=== PATIENT | female | born 1940 | race Caucasian/White ===

== ENCOUNTER 2016-09-30 15:44 | Emergency (ER) | payer MEDICARE, MEDICAID ==
[2016-09-30] MEDS ORDERED: ASPIRIN 81 MG TABLET, CHEWABLE PO ONE (15:49)
--- NOTE | 2016-09-30 15:51 | ER Document Report ---
ED Medical Screen (RME) - General Chief Complaint: Chest Pain Stated Complaint: CHEST WALL PAIN Time Seen by Provider: 09/30/16 15:49 Notes: The patient is a 76-year-old female, past medical history anxiety, presents by EMS with 1 day of diffuse anterior chest pain that is worse when she palpates the chest wall. She thinks it is her anxiety, but it concerned her enough to call 911. PE: NAD. RRR. Lungs CTAB. Strong radial pulses. I have greeted and performed a rapid initial assessment of this patient. A comprehensive ED assessment and evaluation of the patient, analysis of test results and completion of the medical decision making process will be conducted by additional ED providers. TRAVEL OUTSIDE OF THE [place] IN LAST 30 DAYS: No - Related Data Allergies/Adverse Reactions: No Known Allergies Allergy (Verified 08/19/14 15:12) Past Medical History - Past Medical History Cardiac Medical History: Reports: Hx Coronary Artery Disease, Hx Hypercholesterolemia, Hx Peripheral Vascular Disease Denies: Hx Heart Attack, Hx Hypertension Pulmonary Medical History: Denies: Hx Asthma, Hx Bronchitis, Hx COPD, Hx Pneumonia Neurological Medical History: Reports: Hx Cerebrovascular Accident. Denies: Hx Seizures Endocrine Medical History: Reports: Hx Hypothyroidism Renal/ Medical History: Reports: Hx End Stage Renal Disease, Hx Renal Insufficiency GI Medical History: Denies: Hx Hepatitis, Hx Hiatal Hernia, Hx Ulcer Musculoskeltal Medical History: Reports Hx Arthritis, Reports Hx Gout Psychiatric Medical History: Reports: Hx Anxiety, Hx Dementia, Hx Depression Infectious Medical History: Denies: Hx Hepatitis Past Surgical History: Reports: Hx Cholecystectomy, Hx Hysterectomy, Hx Orthopedic Surgery - Right total knee, laminectomy, Hx Thyroid Surgery, Hx Vascular Surgery - Left iliac artery angioplasty and stent. Denies: Hx Mastectomy, Hx Open Heart Surgery, Hx Pacemaker - Immunizations Hx Diphtheria, Pertussis, Tetanus Vaccination: Yes - 2008
--- NOTE | 2016-09-30 16:23 | RADIOLOGY REPORT (SQ) ---
EXAM DESCRIPTION: CHEST SINGLE VIEW COMPLETED DATE/TIME: 09/30/2016 4:14 pm REASON FOR STUDY: chest pain COMPARISON: 08/20/2015. NUMBER OF VIEWS: One view. TECHNIQUE: Single frontal radiographic view of the chest acquired. LIMITATIONS: None. FINDINGS: LUNGS AND PLEURA: No opacities, masses or pneumothorax. No pleural effusion. Attenuated bl ood vessels and flattened agnes-diaphragms. MEDIASTINUM AND HILAR STRUCTURES: No masses. Contour normal. HEART AND VASCULAR STRUCTURES: Heart normal in size. Normal vasculature. BONES: No acute findings. HARDWARE: None in the chest. OTHER: No other significant finding. IMPRESSION: COPD. NO ACUTE RADIOGRAPHIC FINDING IN THE CHEST. TECHNICAL DOCUMENTATION: JOB ID: [id number] [employer]- All Rights Reserved
--- NOTE | 2016-09-30 16:29 | ER Document Report ---
ED Cardiac - General Chief Complaint: Chest Pain Stated Complaint: CHEST WALL PAIN Time Seen by Provider: 09/30/16 15:49 Mode of Arrival: Stretcher Information source: Patient TRAVEL OUTSIDE OF THE [place] IN LAST 30 DAYS: No - HPI Patient complains to provider of: Chest pain Was the onset of pain: Gradual Is the pain a: New problem Chest pain location: Substernal Quality of pain: Achy Chest pain radiation location: None Severity now: Mild Severity at worst: Mild Chest pain precipitating factors: At Rest Cardiac risk factors: Hypertension, Dyslipidemia Associated symptoms: Shortness of breath Exacerbated by: Coughing, Torso movement Relieved by: Nothing Similar symptoms previously: No Recently seen / treated by doctor: No Notes: Patient is a 76-year-old female who presents via EMS from [facility] for complaints of midsternal chest pain that is dull and achy, it has been going on for 3 weeks, it is reproducible with certain movements, as well as deep breaths and coughing, her cough is nonproductive, she does report some shortness of breath at times, has a history of chronic COPD and is on 2 L of O2 24 hours a day, patient denies any fever - Related Data Allergies/Adverse Reactions: No Known Allergies Allergy (Verified 09/30/16 16:46) Home Medications: Current Home Medications Budesonide/Formoterol Fumarate [Symbicort Hfa 160-4.5 Mcg Inhaler 6 gm] 2 puff IH Q12 09/30/16 [History] Dextromethorphan HBr/Quinidine [Nuedexta 20-10 mg Capsule] 20 mg PO BID [History] Dicyclomine HCl 20 mg PO TID 09/30/16 [History] Lisinopril [Prinivil 2.5 mg Tablet] 7.5 mg PO DAILY 09/30/16 [History] Melatonin 1 mg PO DAILY 09/30/16 [History] Methylcellulose [Fiber Laxative] 500 mg PO TID 09/30/16 [History] Sennosides [Senna] 8.6 mg PO BID 09/30/16 [History] Trazodone HCl 50 mg PO DAILY 09/30/16 [History] Past Medical History - General Information source: Patient - Social History Smoking Status: Former Smoker Family History: DM, Hyperlipidemia, Hypertension - Past Medical History Cardiac Medical History: Reports: Hx Coronary Artery Disease, Hx Hypercholesterolemia, Hx Peripheral Vascular Disease Denies: Hx Heart Attack, Hx Hypertension Pulmonary Medical History: Denies: Hx Asthma, Hx Bronchitis, Hx COPD, Hx Pneumonia Neurological Medical History: Reports: Hx Cerebrovascular Accident. Denies: Hx Seizures Endocrine Medical History: Reports: Hx Hypothyroidism Renal/ Medical History: Reports: Hx End Stage Renal Disease, Hx Renal Insufficiency GI Medical History: Denies: Hx Hepatitis, Hx Hiatal Hernia, Hx Ulcer Musculoskeltal Medical History: Reports Hx Arthritis, Reports Hx Gout Psychiatric Medical History: Reports: Hx Anxiety, Hx Dementia, Hx Depression Infectious Medical History: Denies: Hx Hepatitis Past Surgical History: Reports: Hx Cholecystectomy, Hx Hysterectomy, Hx Orthopedic Surgery - Right total knee, laminectomy, Hx Thyroid Surgery, Hx Vascular Surgery - Left iliac artery angioplasty and stent. Denies: Hx Mastectomy, Hx Open Heart Surgery, Hx Pacemaker - Immunizations Hx Diphtheria, Pertussis, Tetanus Vaccination: Yes - 2008 Hx Pneumococcal Vaccination: 03/08/10 Review of Systems - Review of Systems Constitutional: No symptoms reported EENT: No symptoms reported Cardiovascular: See HPI Respiratory: See HPI Gastrointestinal: No symptoms reported Genitourinary: No symptoms reported Female Genitourinary: No symptoms reported Musculoskeletal: No symptoms reported Skin: No symptoms reported Hematologic/Lymphatic: No symptoms reported Neurological/Psychological: No symptoms reported -: Yes All other systems reviewed and negative Physical Exam - Vital signs Vitals: Pulse Ox 100 09/30/16 16:35 Interpretation: Normal - General General appearance: Appears well, Alert - HEENT Head: Normocephalic, Atraumatic Eyes: Normal Pupils: PERRL - Respiratory Respiratory status: No respiratory distress Chest status: Tender - Tender to palpate over midsternum Breath sounds: Normal Chest palpation: Normal - Cardiovascular Rhythm: Regular Heart sounds: Normal auscultation Murmur: No - Abdominal Inspection: Normal Distension: No distension Bowel sounds: Normal Tenderness: Nontender Organomegaly: No organomegaly - Back Back: Normal, Nontender - Extremities General upper extremity: Normal inspection, Nontender, Normal color, Normal ROM , Normal temperature General lower extremity: Normal inspection, Nontender, Normal color, Normal ROM , Normal temperature, Normal weight bearing. No: Ranjana's sign - Neurological Neuro grossly intact: Yes Cognition: Normal Orientation: AAOx4 [place] Coma Scale Eye Opening: Spontaneous [place] Coma Scale Verbal: Oriented [place] Coma Scale Motor: Obeys Commands Saundra Coma Scale Total: 15 Speech: Normal Motor strength normal: LUE, RUE, LLE, RLE Sensory: Normal - Psychological Associated symptoms: Normal affect, Normal mood - Skin Skin Temperature: Warm Skin Moisture: Dry Skin Color: Normal Course - Re-evaluation Re-evalutation: 09/30/16 17:56 Patient's chest pain is been going on for 3 weeks, it is reproducible with palpation or certain, more consistent with musculoskeletal pain, evaluation in the emergency room is unremarkable except for patient's chronic kidney disease with lab values consistent with previous testing, patient was advised to follow- up with her primary care provider or return if symptoms worsen, patient acknowledges understanding and agreement with this plan - Vital Signs Vital signs: Temp Pulse Resp BP Pulse Ox 100 09/30/16 16:35 - Laboratory Result Diagrams: 09/30/16 16:30 09/30/16 16:30 Laboratory results interpreted by me: 09/30/16 09/30/16 09/30/16 16:30 16:30 16:30 RBC 3.39 L Hgb 11.1 L Hct 33.1 L MCV 98 H Plt Count 132 L Potassium 5.1 H BUN 26 H Creatinine 1.50 H Est GFR ( Amer) 41 L Est GFR (Non-Af Amer) 34 L Creatine Kinase 140 H NT-Pro-B Natriuret Pep 649 H - Diagnostic Test Radiology reviewed: Image reviewed, Reports reviewed - EKG Interpretation by Me EKG shows normal: Sinus rhythm Rate: Normal Rhythm: NSR Discharge - Discharge Clinical Impression: Chest wall pain Condition: Stable Disposition: HOME, SELF-CARE Instructions: Chest Wall Pain ([facility]) Additional Instructions: Follow up with your primary care provider in one to 2 days. Return to the emergency room immediately if symptoms worsen or any additional concerns.
[2016-09-30 16:38] LABS: ABSOLUTE BASOPHILS # (AUTO) 0.1 10^3/uL (0.0-0.2); ABSOLUTE EOSINOPHILS # (AUTO) 0.2 10^3/uL (0.0-0.6); ABSOLUTE LYMPHOCYTES (AUTO) 1.1 10^3/uL (0.5-4.7); ABSOLUTE MONOCYTES (AUTO) 0.4 10^3/uL (0.1-1.4); ABSOLUTE NEUT (AUTO) 2.9 10^3/uL (1.7-8.2); BASOPHILS % (AUTO) 1.2 % (0-2); EOSINOPHILS % (AUTO) 3.5 % (0-6); HEMATOCRIT 33.1 % (36.0-47.0); HEMOGLOBIN 11.1 g/dL (12.0-15.5); HGB HCT DIFFERENCE 0.2; LYMPHOCYTES % (AUTO) 24.3 % (13-45); MEAN CORPUSCULAR HEMOGLOBIN 32.9 pg (27.0-33.4); MEAN CORPUSCULAR HGB CONC 33.6 g/dL (32.0-36.0); MEAN CORPUSCULAR VOLUME 98 fl (80-97); MONOCYTES % (AUTO) 8.2 % (3-13); RED BLOOD COUNT 3.39 10^6/uL (3.72-5.28); SEGMENTED NEUTROPHILS % (AUTO) 62.8 % (42-78); WHITE BLOOD COUNT 4.6 10^3/uL (4.0-10.5)
[2016-09-30 16:56] LABS: ALANINE AMINOTRANSFERASE 19 U/L (9-52); ALBUMIN 4.4 g/dL (3.5-5.0); ALKALINE PHOSPHATASE 92 U/L (38-126); ANION GAP 9 (5-19); ASPARTATE AMINO TRANSFERASE 32 U/L (14-36); BILIRUBIN,DIRECT 0.4 mg/dL (0.0-0.4); BILIRUBIN,TOTAL 0.4 mg/dL (0.2-1.3); BLOOD UREA NITROGEN 26 mg/dL (7-20); CALCIUM 9.2 mg/dL (8.4-10.2); CARBON DIOXIDE 26 mmol/L (22-30); CHLORIDE 106 mmol/L (98-107); CREATINE KINASE 140 U/L (30-135); GLUCOSE 85 mg/dL (75-110); MAGNESIUM 1.6 mg/dL (1.6-2.3); POTASSIUM 5.1 mmol/L (3.6-5.0); SODIUM 140.8 mmol/L (137-145); TOTAL PROTEIN 7.7 g/dL (6.3-8.2)
[2016-09-30] MEDS: NITROGLYCERIN 0.4 MG/TAB 25 TAB/BOTTLE SL PRN ×2 (16:58→17:02)
[2016-09-30 17:17] LABS: TROPONIN I < 0.012 ng/mL
--- NOTE | 2016-09-30 17:40 | EKG REPORT ---
SEVERITY:- NORMAL ECG - SINUS RHYTHM : Confirmed by: Jessica Harris MD 30-Sep-2016 17:39:59
[2016-09-30 19:46] VITALS: BP 108/78
== END 2016-09-30 19:45 | disposition home or self-care (01) ==
LOC: ER 15:44
DX: R07.89 Other chest pain (principal); J44.9 Chronic obstructive pulmonary disease, unspecified; Z99.81 Dependence on supplemental oxygen; N18.6 End stage renal disease; R05 Cough; R06.02 Shortness of breath; I25.10 Atherosclerotic heart disease of native coronary artery without angina pectoris; Z87.891 Personal history of nicotine dependence
CPT/HCPCS: 93005; 99285; 36415; 82550; 83735; 85025; 80053; 84484; 83880; 71010; 93010; A9270

== ENCOUNTER → 2017-04-01 | Outpatient (CLI) | payer MEDICARE, MEDICAID ==
--- NOTE | 2017-04-01 12:53 | WOMENS IMAGING REPORT ---
EXAM DESCRIPTION: BILAT SCREENING MAMMO W/CAD COMPLETED DATE/TIME: 04/01/2017 9:22 am REASON FOR STUDY: ROUTINE SCREENING; Z12.31 Z12.31 ENCNTR SCREEN MAMMOGRAM FOR MALIGNANT NEOPLASM O F KENY COMPARISON: 07/03/2011 and 01/01/2009. TECHNIQUE: Standard craniocaudal and mediolateral oblique views of each breast recorded using digita l acquisition. LIMITATIONS: None. FINDINGS: Findings present which are benign by mammographic criteria. No suspicious masses, calcifi cations or architectural distortion. Pertinent benign findings: Stable benign calcifications. Read with the assistance of CAD. .[facility] - R2 Cenova Version 1.3 .[facility] - R2 Cenova Version 1.3 .[facility] - R2 Cenova Version 2.4 .[facility] [place] - R2 Cenova Version 2.4 .[facility] - R2 Salv[employer] Cutter Version 9.2 Benign mammographic findings may include one or more of the following: Smooth masses, popcorn/rim/co arse calcifications, asymmetries, post-procedure changes, and lesions with long-standing stability. IMPRESSION: BENIGN MAMMOGRAPHIC FINDINGS. BIRADS 2 BREAST DENSITY: c. The breasts are heterogeneously dense, which may obscure small masses. BIRAD: 2 BENIGN FINDING(S) RECOMMENDATION: ROUTINE SCREENING COMMENT: The patient has been notified of the results by letter per MQSA requirements. Additional no tification policies are in place for contacting patient with suspicious or incomplete findings. Quality ID #[id number]: The [employer] recommends an annual screening mammogram for women aged 40 years or over. This facility utilizes a reminder system to ensure that all patients receive reminder letters, and/or direct phone calls for appointments. This includes reminders for routine scr eening mammograms, diagnostic mammograms, or other Breast Imaging Interventions when appropriate. Th is patient will be placed in the appropriate reminder system. The [employer] (ACR) has developed recommendations for screening MRI of the breast s in certain patient populations, to be used in conjunction with mammography. Breast MRI surveillanc e may be appropriate for women with more than 20% lifetime risk of developing breast cancer as deter mined by genetic testing, significant family history of the disease, or history of mantle radiation f or Hodgkins Disease. ACR Practice Guidelines 2008. TECHNICAL DOCUMENTATION: FINDING NUMBER: (1) ASSESSMENT: (1) JOB ID: [id number] [employer]- All Rights Reserved
== END ==
LOC: WI 08:34
PROVIDERS: ATTEND Internal Medicine
DX: Z12.31 Encounter for screening mammogram for malignant neoplasm of breast (principal)
CPT/HCPCS: 77067

== ENCOUNTER → 2018-02-16 | Outpatient (CLI) | payer MEDICARE, MEDICAID ==
[2018-02-16 09:11] LABS: ABSOLUTE BASOPHILS # (AUTO) 0.1 10^3/uL (0.0-0.2); ABSOLUTE EOSINOPHILS # (AUTO) 0.2 10^3/uL (0.0-0.6); ABSOLUTE LYMPHOCYTES (AUTO) 1.1 10^3/uL (0.5-4.7); ABSOLUTE MONOCYTES (AUTO) 0.3 10^3/uL (0.1-1.4); ABSOLUTE NEUT (AUTO) 2.5 10^3/uL (1.7-8.2); BASOPHILS % (AUTO) 1.2 % (0-2); EOSINOPHILS % (AUTO) 4.8 % (0-6); HEMATOCRIT 31.9 % (36.0-47.0); HEMOGLOBIN 10.8 g/dL (12.0-15.5); LYMPHOCYTES % (AUTO) 25.4 % (13-45); MEAN CORPUSCULAR HEMOGLOBIN 31.4 pg (27.0-33.4); MEAN CORPUSCULAR HGB CONC 33.7 g/dL (32.0-36.0); MEAN CORPUSCULAR VOLUME 93 fl (80-97); PLATELET COUNT 124 10^3/uL (150-450); RED BLOOD COUNT 3.43 10^6/uL (3.72-5.28); RED CELL DISTRIBUTION WIDTH 13.9 % (11.5-14.0); SEGMENTED NEUTROPHILS % (AUTO) 60.6 % (42-78); TOTAL CELLS COUNTED % (AUTO) 100 %; WHITE BLOOD COUNT 4.2 10^3/uL (4.0-10.5)
[2018-02-16 09:36] LABS: ALANINE AMINOTRANSFERASE 12 U/L (9-52); ALKALINE PHOSPHATASE 92 U/L (38-126); ANION GAP 13 (5-19); ASPARTATE AMINO TRANSFERASE 24 U/L (14-36); BILIRUBIN,DIRECT 0.3 mg/dL (0.0-0.4); BILIRUBIN,TOTAL 0.4 mg/dL (0.2-1.3); BLOOD UREA NITROGEN 27 mg/dL (7-20); CALCIUM 9.4 mg/dL (8.4-10.2); CARBON DIOXIDE 26 mmol/L (22-30); CHLORIDE 105 mmol/L (98-107); GLUCOSE 89 mg/dL (75-110); PHOSPHORUS 5.1 mg/dL (2.5-4.5); POTASSIUM 5.4 mmol/L (3.6-5.0); SODIUM 143.6 mmol/L (137-145); TOTAL PROTEIN 6.8 g/dL (6.3-8.2)
[2018-02-16 10:00] LABS: APPEARANCE,URINE CLEAR; BILIRUBIN,URINE NEGATIVE (NEGATIVE); COLOR,URINE STRAW; GLUCOSE, URINE NEGATIVE (NEGATIVE); KETONES,URINE NEGATIVE (NEGATIVE); LEUKOCYTE ESTERASE,URINE SMALL (NEGATIVE); NITRITE,URINE NEGATIVE (NEGATIVE); PROTEIN,URINE NEGATIVE (NEGATIVE); URINE SPECIFIC GRAVITY 1.009; UROBILINOGEN,URINE NEGATIVE mg/dL (<2.0)
== END ==
LOC: OD 08:17
PROVIDERS: ATTEND Internal Medicine Nephrology
DX: I12.9 Hypertensive chronic kidney disease with stage 1 through stage 4 chronic kidney disease, or unspecified chronic kidney disease (principal); N18.3 Chronic kidney disease, stage 3 (moderate)
CPT/HCPCS: 36415; 80053; 81001; 83735; 83970; 84100; 85025

== ENCOUNTER → 2018-03-16 | Outpatient (CLI) | payer MEDICARE, MEDICAID ==
[2018-03-16 09:55] LABS: ANION GAP 9 (5-19); BLOOD UREA NITROGEN 26 mg/dL (7-20); CALCIUM 9.7 mg/dL (8.4-10.2); CARBON DIOXIDE 28 mmol/L (22-30); CHLORIDE 105 mmol/L (98-107); CREATINE KINASE 50 U/L (30-135); GLUCOSE 97 mg/dL (75-110); IRON(TIBC) 60.9 ug/dL (37-170)
== END ==
LOC: OD 08:37
PROVIDERS: ATTEND Internal Medicine Nephrology
DX: I12.9 Hypertensive chronic kidney disease with stage 1 through stage 4 chronic kidney disease, or unspecified chronic kidney disease (principal); N18.4 Chronic kidney disease, stage 4 (severe)
CPT/HCPCS: 36415; 80048; 82533; 82550; 82728; 83540; 83550; 84165

== ENCOUNTER → 2018-05-10 | Outpatient (CLI) | payer OTHER, MEDICARE, MEDICAID ==
[2018-05-10 11:00] LABS: APPEARANCE,URINE CLEAR; BILIRUBIN,URINE NEGATIVE (NEGATIVE); COLOR,URINE YELLOW; GLUCOSE, URINE NEGATIVE (NEGATIVE); KETONES,URINE NEGATIVE (NEGATIVE); LEUKOCYTE ESTERASE,URINE TRACE (NEGATIVE); NITRITE,URINE NEGATIVE (NEGATIVE); PROTEIN,URINE NEGATIVE (NEGATIVE); URINE SPECIFIC GRAVITY 1.014; UROBILINOGEN,URINE NEGATIVE mg/dL (<2.0)
== END ==
LOC: LAB 10:49
PROVIDERS: ATTEND Nurse Practitioner Family
DX: N39.0 Urinary tract infection, site not specified (principal)
CPT/HCPCS: 81001; 87086; 87088; 87186

== ENCOUNTER 2018-10-26 08:17 | Inpatient (IN) | payer MEDICARE, MEDICAID ==
--- NOTE | 2018-10-26 08:39 | ER Document Report ---
ED Dizziness/Weakness - General Chief Complaint: Syncope Stated Complaint: POSSIBLE SYNCOPE Time Seen by Provider: 10/26/18 08:32 Primary Care Provider: BRIGID BEARD FNP-C [NO LOCAL MD] - Follow up as needed Mode of Arrival: Medic Information source: Patient, Emergency Med Personnel TRAVEL OUTSIDE OF THE [place] IN LAST 30 DAYS: No - HPI Notes: Patient lives in an Alzheimer's unit. Apparently today while at the Alzheimer's unit she became dizzy and fell in the presence of personnel. Personnel helped her to the floor but she did hit her head. On arrival here she is complaining of some headache and dizziness. Apparently this pain is constant. She does not report any radiation of this pain. It appears to be moderate. She describes it as aching in sensation. No known vomiting or diarrhea. Patient has had no k nown recent fevers or infections. She states she did used to be on oxygen. She states she does not know why she is not on oxygen anymore. She denies any shortness of breath. - Related Data Allergies/Adverse Reactions: No Known Allergies Allergy (Verified 09/30/16 16:46) Past Medical History - General Information source: Patient, Emergency Med Personnel - Social History Smoking Status: Never Smoker Frequency of alcohol use: None Drug Abuse: None Family History: DM, Hyperlipidemia, Hypertension - Past Medical History Cardiac Medical History: Reports: Hx Coronary Artery Disease, Hx Hypercholesterolemia, Hx Peripheral Vascular Disease Denies: Hx Heart Attack, Hx Hypertension Pulmonary Medical History: Denies: Hx Asthma, Hx Bronchitis, Hx COPD, Hx Pneumonia Neurological Medical History: Reports: Hx Cerebrovascular Accident. Denies: Hx Seizures Endocrine Medical History: Reports: Hx Hypothyroidism Renal/ Medical History: Reports: Hx End Stage Renal Disease, Hx Renal Insufficiency GI Medical History: Denies: Hx Hepatitis, Hx Hiatal Hernia, Hx Ulcer Musculoskeletal Medical History: Reports Hx Arthritis, Reports Hx Gout Psychiatric Medical History: Reports: Hx Anxiety, Hx Dementia, Hx Depression Infectious Medical History: Denies: Hx Hepatitis Past Surgical History: Reports: Hx Cholecystectomy, Hx Hysterectomy, Hx Orthopedic Surgery - Right total knee, laminectomy, Hx Thyroid Surgery, Hx Vascular Surgery - Left iliac artery angioplasty and stent. Denies: Hx Mastectomy, Hx Open Heart Surgery, Hx Pacemaker - Immunizations Hx Diphtheria, Pertussis, Tetanus Vaccination: Yes - 2008 Hx Pneumococcal Vaccination: 03/08/10 Review of Systems - Review of Systems -: Yes ROS unobtainable due to patient's medical condition - Review of systems are not obtainable due to patient's dementia Physical Exam - Vital signs Vitals: Temp Pulse Resp BP 98.6 F 68 13 125/74 10/26/18 08:44 10/26/18 08:44 10/26/18 08:44 10/26/18 08:44 Interpretation: Hypoxic - 88 to 92% on room air - General General appearance: Appears well, Alert - HEENT Head: Other - Patient has a mildly tender scalp hematoma on the right parietal area Eyes: Normal Pupils: PERRL - Respiratory Respiratory status: No respiratory distress Chest status: Nontender Breath sounds: Normal Chest palpation: Normal - Cardiovascular Rhythm: Regular Heart sounds: Normal auscultation Murmur: No - Abdominal Inspection: Normal Distension: No distension Bowel sounds: Normal Tenderness: Tender - Patient has left lower quadrant tenderness to palpation without rebound or guarding Organomegaly: No organomegaly - Back Back: Normal, Nontender - Extremities General upper extremity: Normal inspection, Nontender, Normal color, Normal ROM, Normal temperature General lower extremity: Normal inspection, Nontender, Normal color, Normal ROM, Normal temperature, Normal weight bearing. No: Ranjana's sign - Neurological Neuro grossly intact: Yes Cognition: Confused Orientation: Disoriented to time [place] Coma Scale Eye Opening: Spontaneous [place] Coma Scale Verbal: Confused [place] Coma Scale Motor: Obeys Commands [place] Coma Scale Total: 14 Speech: Normal Motor strength normal: LUE, RUE, LLE, RLE Sensory: Normal - Psychological Associated symptoms: Normal affect, Normal mood - Skin Skin Temperature: Warm Skin Moisture: Dry Skin Color: Normal Course - Re-evaluation Re-evalutation: 10/26/18 10:01 Patient reevaluated at this time she is resting comfortably. Vital signs are stable. She does have pneumonia on x-ray with some mild hypoxia. Abdominal CT and head CT were unremarkable for acute process. Laboratory show some dehydration. She has been treated with fluids and antibiotics. She has been accepted for admission. - Vital Signs Vital signs: Temp Pulse Resp BP Pulse Ox 98.6 F 68 13 125/74 10/26/18 08:44 10/26/18 08:44 10/26/18 08:44 10/26/18 08:44 - Laboratory Result Diagrams: 10/26/18 08:25 10/26/18 08:25 Laboratory results interpreted by me: 10/26/18 10/26/18 10/26/18 08:25 08:25 08:30 RBC 3.00 L Hgb 10.0 L Hct 29.8 L MCV 99 H RDW 14.9 H Plt Count 141 L ABG pO2 53.7 L ABG HCO3 25.4 H ABG Total CO2 26.6 H ABG O2 Saturation 89.4 L BUN 36 H Creatinine 2.34 H Est GFR ( Amer) 24 L Est GFR (Non-Af Amer) 20 L Glucose 159 H AST 127 H Laboratory 10/26/18 10/26/18 10/26/18 08:25 08:25 08:25 WBC 4.8 RBC 3.00 L Hgb 10.0 L Hct 29.8 L MCV 99 H MCH 33.4 MCHC 33.6 RDW 14.9 H Plt Count 141 L Absolute Basos (auto) 0.0 Seg Neutrophils % 76.4 Lymphocytes % 16.1 Monocytes % 4.8 Eosinophils % 2.0 Basophils % 0.7 Absolute Neutrophils 3.7 Absolute Lymphocytes 0.8 Absolute Monocytes 0.2 Absolute Eosinophils 0.1 Carbonic Acid HCO3/H2CO3 Ratio ABG pH ABG pCO2 ABG pO2 ABG HCO3 ABG Total CO2 ABG O2 Saturation ABG Base Excess FiO2 Sodium 139.0 Potassium 3.9 Chloride 99 Carbon Dioxide 30 Anion Gap 10 BUN 36 H Creatinine 2.34 H Est GFR ( Amer) 24 L Est GFR (Non-Af Amer) 20 L Glucose 159 H Calcium 9.3 Total Bilirubin 0.6 Direct Bilirubin 0.3 Neonat Total Bilirubin Not Reportable Neonat Direct Bilirubin Not Reportable Neonat Indirect Bili Not Reportable AST 127 H ALT 49 Alkaline Phosphatase 58 Troponin I < 0.012 Total Protein 7.6 Albumin 4.6 10/26/18 08:30 WBC RBC Hgb Hct MCV MCH MCHC RDW Plt Count Absolute Basos (auto) Seg Neutrophils % Lymphocytes % Monocytes % Eosinophils % Basophils % Absolute Neutrophils Absolute Lymphocytes Absolute Monocytes Absolute Eosinophils Carbonic Acid 1.13 HCO3/H2CO3 Ratio 22:1 ABG pH 7.45 ABG pCO2 37.6 ABG pO2 53.7 L ABG HCO3 25.4 H ABG Total CO2 26.6 H ABG O2 Saturation 89.4 L ABG Base Excess 1.5 FiO2 ROOM AIR Sodium Potassium Chloride Carbon Dioxide Anion Gap BUN Creatinine Est GFR ( Amer) Est GFR (Non-Af Amer) Glucose Calcium Total Bilirubin Direct Bilirubin Neonat Total Bilirubin Neonat Direct Bilirubin Neonat Indirect Bili AST ALT Alkaline Phosphatase Troponin I Total Protein Albumin - Diagnostic Test Radiology reviewed: Image reviewed, Reports reviewed Radiology results interpreted by me: 10/26/18 10:01 Abdomen/Pelvis CT 10/26/18 08:32 IMPRESSION: 1. No evidence of acute intra-abdominal/pelvic process. 2. Stable fat containing right paramedian upper abdominal hernia. Chest X-Ray 10/26/18 08:32 IMPRESSION: Emphysematous change with new patchy left lower lobe opacities suspicious for pneumonia. Head CT 10/26/18 08:32 IMPRESSION: 1. Soft tissue swelling/hematoma along the right frontal calvarium without evidence of acute intracranial abnormality. 2. Stable changes of parenchymal atrophy and nonspecific white matter changes, likely sequelae of microangiopathic disease. EVIDENCE OF ACUTE STROKE: NO. - EKG Interpretation by Me EKG shows normal: Sinus rhythm Rate: Normal - 63 Rhythm: NSR Heart block present: 1st Degree Discharge - Discharge Clinical Impression: Pneumonia Qualifiers: Pneumonia type: due to unspecified organism Laterality: left Lung location: lower lobe of lung Qualified Code(s): J18.1 - Lobar pneumonia, unspecified organism Dementia Qualifiers: Dementia type: Alzheimer's disease Alzheimer's disease onset: late-onset Condition: Serious Disposition: ADMITTED INPATIENT Admitting Provider: Florina (Hospitalist) Unit Admitted: IMCU Referrals: BRIGID BEARD, [facility] [NO LOCAL MD] - Follow up as needed
[2018-10-26 08:43] LABS: ABSOLUTE EOSINOPHILS # (AUTO) 0.1 10^3/uL (0.0-0.6); ABSOLUTE LYMPHOCYTES (AUTO) 0.8 10^3/uL (0.5-4.7); ABSOLUTE MONOCYTES (AUTO) 0.2 10^3/uL (0.1-1.4); ABSOLUTE NEUT (AUTO) 3.7 10^3/uL (1.7-8.2); BASOPHILS % (AUTO) 0.7 % (0-2); HEMATOCRIT 29.8 % (36.0-47.0); LYMPHOCYTES % (AUTO) 16.1 % (13-45); MEAN CORPUSCULAR HEMOGLOBIN 33.4 pg (27.0-33.4); MEAN CORPUSCULAR HGB CONC 33.6 g/dL (32.0-36.0); MEAN CORPUSCULAR VOLUME 99 fl (80-97); MONOCYTES % (AUTO) 4.8 % (3-13); PLATELET COUNT 141 10^3/uL (150-450); RED CELL DISTRIBUTION WIDTH 14.9 % (11.5-14.0); SEGMENTED NEUTROPHILS % (AUTO) 76.4 % (42-78); TOTAL CELLS COUNTED % (AUTO) 100 %; WHITE BLOOD COUNT 4.8 10^3/uL (4.0-10.5)
[2018-10-26 08:49] LABS: ARTERIAL BLOOD BASE EXCESS 1.5 mmol/L; ARTERIAL BLOOD H2CO3 1.13 mmol/L (1.05-1.35); ARTERIAL BLOOD HCO3 25.4 mmol/L (20-24); ARTERIAL BLOOD O2 SATURATION 89.4 % (94-98); ARTERIAL BLOOD PCO2 37.6 mmHg (35-45); ARTERIAL BLOOD PH 7.45 (7.35-7.45); ARTERIAL BLOOD PO2 53.7 mmHg (80-100); ARTERIAL BLOOD TOTAL CO2 26.6 mmol/L (21-25)
[2018-10-26 08:50] LABS: ARTERIAL BLOOD FIO2 ROOM AIR
[2018-10-26 08:57] LABS: ALBUMIN 4.6 g/dL (3.5-5.0); ALKALINE PHOSPHATASE 58 U/L (38-126); ANION GAP 10 (5-19); ASPARTATE AMINO TRANSFERASE 127 U/L (14-36); BILIRUBIN,DIRECT 0.3 mg/dL (0.0-0.4); BILIRUBIN,TOTAL 0.6 mg/dL (0.2-1.3); BLOOD UREA NITROGEN 36 mg/dL (7-20); CALCIUM 9.3 mg/dL (8.4-10.2); CARBON DIOXIDE 30 mmol/L (22-30); CHLORIDE 99 mmol/L (98-107); GLUCOSE 159 mg/dL (75-110); POTASSIUM 3.9 mmol/L (3.6-5.0); TOTAL PROTEIN 7.6 g/dL (6.3-8.2)
--- NOTE | 2018-10-26 09:12 | RADIOLOGY REPORT (SQ) ---
EXAM DESCRIPTION: CHEST SINGLE VIEW COMPLETED DATE/TIME: 10/26/2018 9:04 am REASON FOR STUDY: hypoxia COMPARISON: 08/20/2015 EXAM PARAMETERS: NUMBER OF VIEWS: One view. TECHNIQUE: Single frontal radiographic view of the chest acquired. RADIATION DOSE: NA LIMITATIONS: None. FINDINGS: LUNGS AND PLEURA: Emphysematous change with new patchy left lower lobe opacities. No larg e effusion. No appreciable pneumothorax. MEDIASTINUM AND HILAR STRUCTURES: No masses. Contour normal. HEART AND VASCULAR STRUCTURES: Normal heart size. Aortic atherosclerosis. BONES: No acute findings. Partially visualized cervical fusion hardware. HARDWARE: Cervical fusion hardware. OTHER: No other significant finding. IMPRESSION: Emphysematous change with new patchy left lower lobe opacities suspicious for pneumonia. TECHNICAL DOCUMENTATION: JOB ID: [id number] [employer]- All Rights Reserved Reading location - IP/workstation name: [email or web address]
[2018-10-26] MEDS ORDERED: PIPERACILLIN/TAZOBACTAM 3.375 GM VIAL IV ONE (09:41)
[2018-10-26] MEDS ORDERED: NORMAL SALINE 1000 ML 1,000 ML IV ONE (09:41)
--- NOTE | 2018-10-26 09:44 | RADIOLOGY REPORT (SQ) ---
EXAM DESCRIPTION: CT HEAD WITHOUT COMPLETED DATE/TIME: 10/26/2018 9:30 am REASON FOR STUDY: fall/hematoma scalp COMPARISON: 12/02/2018, 12/03/2018 TECHNIQUE: Axial images acquired through the brain without intravenous contrast. Images reviewed wi th bone, brain and subdural windows. Additional sagittal and coronal reconstructions were generated. Images stored on PACS. All CT scanners at this facility use dose modulation, iterative reconstruction, and/or weight based d osing when appropriate to reduce radiation dose to as low as reasonably achievable (ALARA). [facility]: Dose Right [facility]: CareDose [facility]: Dose Right [facility]: Teradose 4D [facility]: TapCanvas RADIATION DOSE: CT Rad equipment meets quality standard of care and radiation dose reduction techniq ues were employed. CTDIvol: 48.6 mGy. DLP: 904 mGy-cm.mGy. LIMITATIONS: None. FINDINGS: VENTRICLES: Prominent. Cavum septum pellucidum again noted. CEREBRUM: No masses. No hemorrhage. No midline shift. Stable areas of low density in the white mat ter most likely due to chronic micro-vascular ischemic change. No evidence for acute infarction. CEREBELLUM: No masses. No hemorrhage. No alteration of density. No evidence for acute infarction. EXTRAAXIAL SPACES: Age-related involutional change. No fluid collections. No masses. ORBITS AND GLOBE: No intra- or extraconal masses. Normal contour of globe without masses. CALVARIUM: No fracture. PARANASAL SINUSES: No fluid or mucosal thickening. SOFT TISSUES: Soft tissue swelling and hematoma along the right frontal calvarium. OTHER: Unchanged ectasia of the right V4 vertebral artery measuring up to 6 mm. Bilateral cavernous IC atherosclerosis. IMPRESSION: 1. Soft tissue swelling/hematoma along the right frontal calvarium without evidence of acute intracranial abnormality. 2. Stable changes of parenchymal atrophy and nonspecific white matter changes, likely sequelae of mi croangiopathic disease. EVIDENCE OF ACUTE STROKE: NO. TECHNICAL DOCUMENTATION: JOB ID: [id number] Quality ID # [id number]: Final reports with documentation of one or more dose reduction techniques (e.g., Au tomated exposure control, adjustment of the mA and/or kV according to patient size, use of iterative reconstruction technique) 2010 [employer]- All Rights Reserved Reading location - IP/workstation name: [email or web address]
--- NOTE | 2018-10-26 09:50 | RADIOLOGY REPORT (SQ) ---
EXAM DESCRIPTION: CT ABD/PELVIS NO ORAL OR IV COMPLETED DATE/TIME: 10/26/2018 9:30 am REASON FOR STUDY: llq pain COMPARISON: 11/25/2013 TECHNIQUE: CT scan of the abdomen and pelvis performed without intravenous or oral contrast. Images reviewed with lung, soft tissue, and bone windows. Reconstructed coronal and sagittal MPR images revi ewed. All images stored on PACS. All CT scanners at this facility use dose modulation, iterative reconstruction, and/or weight based d osing when appropriate to reduce radiation dose to as low as reasonably achievable (ALARA). [facility]: Dose Right [facility]: CareDose [facility]: Dose Right [facility]: Teradose 4D [facility]: Smart Radio Rebel RADIATION DOSE: CT Rad equipment meets quality standard of care and radiation dose reduction techniq ues were employed. CTDIvol: 7.4 mGy. DLP: 414 mGy-cm.mGy. LIMITATIONS: None. FINDINGS: LOWER CHEST: Mild dependent hypoventilatory change bilaterally. Trace pericardial effusio n. Scattered coronary atherosclerosis. NON-CONTRASTED LIVER, SPLEEN, ADRENALS: Evaluation limited by lack of intravenous contrast. Scattere d splenic granuloma. No significant masses. PANCREAS: No masses. No peripancreatic inflammatory changes. GALLBLADDER: Surgically absent. RIGHT KIDNEY AND URETER: No suspicious masses. Assessment limited by lack of IV contrast. No signif icant calcifications. Fullness of the extrarenal pelvis without caliceal dilation. LEFT KIDNEY AND URETER: No suspicious masses. Assessment limited by lack of IV contrast. No signifi cant calcifications. No hydronephrosis or hydroureter. AORTA AND RETROPERITONEUM: Aortoiliac atherosclerosis without discrete aneurysm. Evidence of prior l eft common iliac stent placement. No retroperitoneal adenopathy or hemorrhage. BOWEL AND PERITONEAL CAVITY: No focal bowel wall thickening. No evidence of intestinal obstruction. APPENDIX: Absent. PELVIS, BLADDER, AND ABDOMINAL WALL:Unchanged fat containing right paramedian upper abdominal hernia with a a 2.2 cm aperture. Unremarkable urinary bladder. No pelvic adenopathy or free fluid. BONES: No acute bony abnormality. Lower lumbar facet arthropathy. Partially visualized right hip pozo rdware. Unchanged L2 compression deformity. IMPRESSION: 1. No evidence of acute intra-abdominal/pelvic process. 2. Stable fat containing right paramedian upper abdominal hernia. COMMENT: Quality ID # [id number]: Final reports with documentation of one or more dose reduction techniques (e.g., Automated exposure control, adjustment of the mA and/or kV according to patient size, use of iterative reconstruction technique) TECHNICAL DOCUMENTATION: JOB ID: [id number] [employer]- All Rights Reserved Reading location - IP[facility]workstation name: [email or web address]
[2018-10-26 10:33] LABS: AMORPHOUS SEDIMENT,URINE TRACE /HPF; APPEARANCE,URINE CLEAR; BILIRUBIN,URINE NEGATIVE (NEGATIVE); COLOR,URINE YELLOW; GLUCOSE, URINE NEGATIVE (NEGATIVE); KETONES,URINE NEGATIVE (NEGATIVE); LEUKOCYTE ESTERASE,URINE NEGATIVE (NEGATIVE); NITRITE,URINE NEGATIVE (NEGATIVE); PROTEIN,URINE 30 mg/dL (NEGATIVE); URINE SPECIFIC GRAVITY 1.011; UROBILINOGEN,URINE NEGATIVE mg/dL (<2.0)
[2018-10-26] MEDS ORDERED: ACETAMINOPHEN 325 MG TABLET PO PRN (10:39)
[2018-10-26] MEDS ORDERED: (PENDING PHARMACY ID) (Olopatadine Hcl [Pazeo] 1 DROP) OU SCH (10:45)
--- NOTE | 2018-10-26 10:58 | PDOC H&P ---
History of Present Illness Admission Date/PCP: 10/26/2018 Patient complains of: History of fall at assisted living History of Present Illness: SONI DUONG is a 78 year old female with history of for dementia, chronic kidney disease, COPD brought from the assisted living after history of fall and passed out. The work-up in the emergency room shows possible left- sided pneumonia and pulse oxes were low at the time of arrival requiring oxygen supplementation, CT abdominal pelvis was negative for acute intra-abdominal pathology and CT head was negative for acute intra-cranial pathology. Family members agreed to admission with treatment with IV fluids and antibiotic therapy. Patient CODE STATUS is DNR/DNI. Past Medical History Cardiac Medical History: Reports: Coronary Artery Disease, Hyperlipidema, Peripheral Vascular Disease Denies: Myocardial Infarction, Hypertension Pulmonary Medical History: Denies: Asthma, Bronchitis, Chronic Obstructive Pulmonary Disease (COPD), Pneumonia Neurological Medical History: Denies: Seizures Endocrine Medical History: Reports: Hypothyroidism Renal/ Medical History: Reports: End Stage Renal Disease GI Medical History: Denies: Hepatitis, Hiatal Hernia Musculoskeltal Medical History: Reports: Arthritis, Gout Psychiatric Medical History: Reports: Dementia, Depression Hematology: Denies: Anemia, Sickle Cell Disease Past Surgical History Past Surgical History: Reports: Cholecystectomy, Hysterectomy, Orthopedic Surgery - Right total knee, laminectomy, Thyroidectomy, Vascular Surgery - Left iliac artery angioplasty and stent Denies: Amputation, Mastectomy, Pacemaker Social History Information Source: Relative Lives with: [facility] Smoking Status: Never Smoker Frequency of Alcohol Use: None Hx Recreational Drug Use: No Drugs: None Hx Prescription Drug Abuse: No - Advance Directive Resuscitation Status: Do Not Resuscitate Family History Family History: DM, Hyperlipidemia, Hypertension Parental Family History Reviewed: Yes - Not significant Children Family History Reviewed: Yes Sibling(s) Family History Reviewed.: Yes Medication/Allergy Home Medications: Acetaminophen [Tylenol 325 mg Tablet] 650 mg PO Q4HP PRN 10/26/18 Atorvastatin Calcium [Lipitor 20 mg Tablet] 20 mg PO QHS 10/26/18 Budesonide/Formoterol Fumarate [Symbicort HFA 160-4.5 mcg Inhaler 6 gm] 2 puff IH Q12 10/26/18 Dextromethorphan HBr/Quinidine [Nuedexta 20-10 mg Capsule] 1 cap PO BID 10/26/18 Dicyclomine HCl [Bentyl 20 mg Tablet] 20 mg PO DAILY 10/26/18 Escitalopram Oxalate [Lexapro] 20 mg PO DAILY 10/26/18 Juniper/Donis/Znox/Pet,Wh/Rodriguez [Endit Ointment] 1 applic TOP QID 10/26/18 Mineral Oil/Petrolatum,White [Eucerin Cream 114 gm] 1 applic TOP BID 10/26/18 Mupirocin [Bactroban 2% Ointment 22 gm] 1 applic TOP BID 10/26/18 Olopatadine HCl [Pazeo] 1 drop OU DAILY 10/26/18 Trazodone HCl [Desyrel 50 mg Tablet] 50 mg PO QHS 10/26/18 Allergies/Adverse Reactions: No Known Allergies Allergy (Verified 09/30/16 16:46) Review of Systems Constitutional: PRESENT: weakness. ABSENT: fatigue, fever(s), headache(s) Eyes: ABSENT: visual disturbances Ears: ABSENT: hearing changes Nose, Mouth, and Throat: ABSENT: sore throat Cardiovascular: ABSENT: orthropnea, palpitations Respiratory: ABSENT: dyspnea, hemoptysis Gastrointestinal: ABSENT: constipation, diarrhea, heartburn, hematemesis, hematochezia Genitourinary: ABSENT: dysuria, hematuria Musculoskeletal: ABSENT: deformity, joint swelling Integumentary: PRESENT: rash Neurological: PRESENT: frequent falls, syncope Psychiatric: ABSENT: anxiety, depression, homidical ideation, suicidal ideation Physical Exam Vital Signs: Temp Pulse Resp BP Pulse Ox 98.6 F 68 13 125/74 10/26/18 08:44 10/26/18 08:44 10/26/18 08:44 10/26/18 08:44 Intake & Output 10/25/18 10/26/18 10/27/18 06:59 06:59 06:59 Weight 74.8 kg General appearance: PRESENT: no acute distress, cooperative, other - pt has advanced dementia Head exam: PRESENT: atraumatic Eye exam: PRESENT: PERRLA Mouth exam: PRESENT: moist, tongue midline Neck exam: ABSENT: carotid bruit, JVD, lymphadenopathy, thyromegaly Respiratory exam: PRESENT: decreased breath sounds Cardiovascular exam: PRESENT: bradycardia GI/Abdominal exam: PRESENT: normal bowel sounds, soft. ABSENT: distended, guarding, mass, organolmegaly, rebound, tenderness Rectal exam: PRESENT: deferred Extremities exam: PRESENT: full ROM. ABSENT: calf tenderness, clubbing, pedal edema Neurological exam: PRESENT: alert, awake, oriented to person, oriented to place, oriented to time, oriented to situation, CN II-XII grossly intact. ABSENT: motor sensory deficit Psychiatric exam: PRESENT: appropriate affect, normal mood. ABSENT: homicidal ideation, suicidal ideation Results Laboratory Results: 10/26/18 08:25 10/26/18 08:25 10/26/18 10/26/18 10/26/18 08:25 08:25 08:30 WBC 4.8 RBC 3.00 L Hgb 10.0 L Hct 29.8 L MCV 99 H MCH 33.4 MCHC 33.6 RDW 14.9 H Plt Count 141 L Seg Neutrophils % 76.4 Lymphocytes % 16.1 Monocytes % 4.8 Eosinophils % 2.0 Basophils % 0.7 Absolute Neutrophils 3.7 Absolute Lymphocytes 0.8 Absolute Monocytes 0.2 Absolute Eosinophils 0.1 Carbonic Acid 1.13 HCO3/H2CO3 Ratio 22:1 ABG pH 7.45 ABG pCO2 37.6 ABG pO2 53.7 L ABG HCO3 25.4 H ABG O2 Saturation 89.4 L ABG Base Excess 1.5 FiO2 ROOM AIR Sodium 139.0 Potassium 3.9 Chloride 99 Carbon Dioxide 30 Anion Gap 10 BUN 36 H Creatinine 2.34 H Est GFR ( Amer) 24 L Est GFR (Non-Af Amer) 20 L Glucose 159 H Calcium 9.3 Total Bilirubin 0.6 AST 127 H Alkaline Phosphatase 58 Total Protein 7.6 Albumin 4.6 Urine Color Urine Appearance Urine pH Ur Specific [place] Urine Protein Urine Glucose (UA) Urine Ketones Urine Blood Urine Nitrite Ur Leukocyte Esterase Urine WBC (Auto) Urine RBC (Auto) 10/26/18 10:06 WBC RBC Hgb Hct MCV MCH MCHC RDW Plt Count Seg Neutrophils % Lymphocytes % Monocytes % Eosinophils % Basophils % Absolute Neutrophils Absolute Lymphocytes Absolute Monocytes Absolute Eosinophils Carbonic Acid HCO3/H2CO3 Ratio ABG pH ABG pCO2 ABG pO2 ABG HCO3 ABG O2 Saturation ABG Base Excess FiO2 Sodium Potassium Chloride Carbon Dioxide Anion Gap BUN Creatinine Est GFR ( Amer) Est GFR (Non-Af Amer) Glucose Calcium Total Bilirubin AST Alkaline Phosphatase Total Protein Albumin Urine Color YELLOW Urine Appearance CLEAR Urine pH 6.0 Ur Specific [place] 1.011 Urine Protein 30 H Urine Glucose (UA) NEGATIVE Urine Ketones NEGATIVE Urine Blood SMALL H Urine Nitrite NEGATIVE Ur Leukocyte Esterase NEGATIVE Urine WBC (Auto) 1 Urine RBC (Auto) 1 10/26/18 08:25 Troponin I < 0.012 Impressions: Abdomen/Pelvis CT 10/26/18 08:32 IMPRESSION: 1. No evidence of acute intra-abdominal/pelvic process. 2. Stable fat containing right paramedian upper abdominal hernia. Chest X-Ray 10/26/18 08:32 IMPRESSION: Emphysematous change with new patchy left lower lobe opacities suspicious for pneumonia. Head CT 10/26/18 08:32 IMPRESSION: 1. Soft tissue swelling/hematoma along the right frontal calvarium without evidence of acute intracranial abnormality. 2. Stable changes of parenchymal atrophy and nonspecific white matter changes, likely sequelae of microangiopathic disease. EVIDENCE OF ACUTE STROKE: NO. Assessment and Plan - Diagnosis (1) Pneumonia Qualifiers: Pneumonia type: due to unspecified organism Laterality: left Lung location: lower lobe of lung Qualified Code(s): J18.1 - Lobar pneumonia, unspecified organism Is this a current diagnosis for this admission?: Yes Plan: [id number] during the admission shows possible left-sided pneumonia plan to put the patient in the medical floor CODE STATUS is DNR/DNI septic work-up was requested lactic acid level was pending started on IV fluids normal saline at 75 cc/h and started on Zosyn 3.375 g IV every 8 hours blood cultures urine cultures are requested GI prophylaxis DVT prophylaxis was initiated patient was placed on oxygen supplementation 2 L via nasal cannula. Fall precautions aspiration precautions are requested physical therapy consult was requested. Since lives in assisted living most likely healthcare associated pneumonia poss ible gram-positive and gram-negative organisms responsible. (2) Dementia Qualifiers: Dementia type: Alzheimer's disease Alzheimer's disease onset: late-onset Is this a current diagnosis for this admission?: No Plan: 10/26/2018-patient has advanced dementia not agitated not confused comfortably in the bed. Plan is to continue her assisted living medications. (3) Hypoxemia Is this a current diagnosis for this admission?: Yes Plan: 10/26/2018-patient was hypoxic in the emergency room most likely secondary to healthcare associated pneumonia causing hypoxia. Patient is presently on oxygen 2 L nasal cannula comfortably in the bed. And on albuterol nebulizations on as- needed basis. (4) CKD (chronic kidney disease) stage 4, GFR 15-29 ml/min Is this a current diagnosis for this admission?: No Plan: 10/26/2018-patient has history of stage IV kidney disease baseline creatinine is around 1.7 the creatinine admission today is 2.34. KAREN may be secondary to prerenal causes. IV fluids normal saline at 75 cc/h to watch for the urinary output and to repeat the labs tomorrow. (5) Anemia Qualifiers: Anemia type: unspecified type Qualified Code(s): D64.9 - Anemia, u nspecified Is this a current diagnosis for this admission?: No Plan: 10/26/2018-patient's hemoglobin is around 10 anemia of chronic disease most likely secondary to underlying CKD. (6) SIRS (systemic inflammatory response syndrome) Is this a current diagnosis for this admission?: Yes Plan: 10/26/2018-patient came in with complaints of Reymundo associated with passing out , chest x-ray suggestive of pneumonia and she has KAREN on CKD and also hypoxic at the time of presentation meeting the criteria for Sirs. (7) DNR (do not resuscitate) Is this a current diagnosis for this admission?: No (8) HTN (hypertension) Qualifiers: Hypertension type: essential hypertension Qualified Code(s): I10 - Essential (primary) hypertension Is this a current diagnosis for this admission?: No Plan: 10/26/2018-patient has history of hypertension blood pressure today is 125/71 stable. Plan is to closely monitor the blood pressures every shift. (9) Fall Is this a current diagnosis for this admission?: Yes Plan: 10/26/2018-patient was brought to the emergency room with history of fall most likely secondary to hypoxia. PT consult was requested aspiration /fall precautions are requested. - Time Time Spent with patient: 25-34 minutes Medications reviewed and adjusted accordingly: Yes Anticipated discharge: Other - Assisted living
[2018-10-26] MEDS ORDERED: IPRATROPIUM/ALBUTEROL 0.5-2.5 MG/3 ML AMPUL NEB ONE (11:30)
[2018-10-26] MEDS ORDERED: PIPERACILLIN/TAZOBACTAM 3.375 GM VIAL IV SCH (12:00)
[2018-10-26] MEDS: DICYCLOMINE HCL 20 MG TABLET PO SCH (12:48)
[2018-10-26] MEDS: ESCITALOPRAM OXALATE 10 MG TABLET PO SCH (12:49)
[2018-10-26] MEDS ORDERED: (PENDING PHARMACY ID) (Juniper/Cala/Znox/Pet,Wh/Lan [Endit Ointment] 1 APPLIC) TOP SCH (14:00)
[2018-10-26] MEDS: NORMAL SALINE 1000 ML 1,000 ML IV PRN (15:16)
[2018-10-26 15:32] LABS: TROPONIN I < 0.012 ng/mL
[2018-10-26] MEDS: PIPERACILLIN SODIUM/TAZOBACTAM 3.375 GM in NORMAL SALINE 100 ML IV SCH ×2 (16:12→21:50)
[2018-10-26] MEDS: HEPARIN SOD (PORCINE) 5,000 UNIT/ML 1 ML VIAL SUBCUT SCH ×2 (16:12→21:49)
[2018-10-26] MEDS: MINERAL OIL/PETROLATUM,WHITE CREAM 114 GM TOP SCH (17:31)
[2018-10-26] MEDS: FLUTICASONE/VILANTEROL 200-25 MCG/DOSE IH SCH (17:31)
[2018-10-26] MEDS: PANTOPRAZOLE SODIUM 40 MG TABLET.DR PO SCH (17:31)
--- NOTE | 2018-10-26 17:40 | EKG REPORT ---
SEVERITY:- ABNORMAL ECG - SINUS RHYTHM FIRST DEGREE AV BLOCK BORDERLINE T ABNORMALITIES, ANT-LAT LEADS : Confirmed by: Jessica Harris MD 26-Oct-2018 17:39:55
[2018-10-26] MEDS ORDERED: (PENDING PHARMACY ID) (Dextromethorphan Hbr/Quinidine [Nuedexta 20-10 Mg Capsule] 1 CAP) PO SCH (18:00)
[2018-10-26 21:32] LABS: TROPONIN I < 0.012 ng/mL
[2018-10-26] MEDS: ATORVASTATIN CALCIUM 20 MG TABLET PO SCH (21:50)
[2018-10-26] MEDS: MUPIROCIN 2% OINTMENT 22 GM TOP SCH (21:50)
[2018-10-26] MEDS: TRAZODONE HCL 50 MG TABLET PO SCH (21:51)
[2018-10-27] MEDS: PIPERACILLIN SODIUM/TAZOBACTAM 3.375 GM in NORMAL SALINE 100 ML IV SCH ×4 (04:32→22:13)
[2018-10-27] MEDS: PANTOPRAZOLE SODIUM 40 MG TABLET.DR PO SCH ×2 (05:12→16:13)
[2018-10-27] MEDS: NORMAL SALINE 1000 ML 1,000 ML IV PRN (05:12)
[2018-10-27] MEDS: HEPARIN SOD (PORCINE) 5,000 UNIT/ML 1 ML VIAL SUBCUT SCH ×3 (05:12→22:13)
[2018-10-27 06:58] LABS: ABSOLUTE EOSINOPHILS # (AUTO) 0.1 10^3/uL (0.0-0.6); ABSOLUTE MONOCYTES (AUTO) 0.3 10^3/uL (0.1-1.4); BASOPHILS % (AUTO) 0.7 % (0-2); EOSINOPHILS % (AUTO) 3.2 % (0-6); HEMATOCRIT 27.6 % (36.0-47.0); HEMOGLOBIN 9.4 g/dL (12.0-15.5); LYMPHOCYTES % (AUTO) 23.1 % (13-45); MEAN CORPUSCULAR HEMOGLOBIN 33.5 pg (27.0-33.4); MEAN CORPUSCULAR VOLUME 99 fl (80-97); PLATELET COUNT 125 10^3/uL (150-450); RED CELL DISTRIBUTION WIDTH 14.9 % (11.5-14.0); TOTAL CELLS COUNTED % (AUTO) 100 %; WHITE BLOOD COUNT 4.5 10^3/uL (4.0-10.5)
[2018-10-27 07:27] LABS: ANION GAP 8 (5-19); BLOOD UREA NITROGEN 28 mg/dL (7-20); CALCIUM 8.4 mg/dL (8.4-10.2); CARBON DIOXIDE 26 mmol/L (22-30); CHLORIDE 105 mmol/L (98-107); CHOLESTEROL 163.36 mg/dL (0-200); GLUCOSE 81 mg/dL (75-110); POTASSIUM 4.1 mmol/L (3.6-5.0); TRIGLYCERIDES 90 mg/dL (<150)
[2018-10-27 07:38] LABS: DIRECT LDL 60 mg/dL (<100)
[2018-10-27] MEDS: ESCITALOPRAM OXALATE 10 MG TABLET PO SCH (09:11)
[2018-10-27] MEDS: FLUTICASONE/VILANTEROL 200-25 MCG/DOSE IH SCH (09:12)
[2018-10-27] MEDS: MINERAL OIL/PETROLATUM,WHITE CREAM 114 GM TOP SCH ×2 (09:12→17:29)
[2018-10-27] MEDS: MUPIROCIN 2% OINTMENT 22 GM TOP SCH ×2 (09:12→17:29)
[2018-10-27] MEDS: DICYCLOMINE HCL 20 MG TABLET PO SCH (09:18)
--- NOTE | 2018-10-27 16:19 | Progress Note Acknowledgement ---
Progress Note Acknowledgement Progess Note Acknowledgement: I, the undersigned member of the medical staff with appropriate privileges and with supervisory authority over [ PAC ], a dependent practice allied health professional, acknowledge that I have reviewed the progress notes entered on this patient, and in my professional judgment believe that the assessment made and/or any care evidenced was appropriate
--- NOTE | 2018-10-27 16:31 | PDOC PROGRESS REPORT ---
Subjective Progress Note for:: 10/27/18 Subjective:: 10/27/2018 patient was admitted to the hospital yesterday for a fall with syncope. Patient comes from assisted living. In the emergency room patient was found to have a possible pneumonia and therefore was admitted to the hospital for IV fluids and IV antibiotics. Reason For Visit: LT SIDED PNEUMONIA Physical Exam Vital Signs: Temp Pulse Resp BP Pulse Ox 97.9 F 59 L 18 135/84 H 97 10/27/18 03:30 10/27/18 07:00 10/27/18 03:30 10/27/18 03:30 10/27/18 03:30 Intake & Output 10/26/18 10/27/18 10/28/18 06:59 06:59 06:59 Intake Total 2540 620 Output Total 500 Balance 2039 620 Weight 73 kg General appearance: PRESENT: no acute distress, well-developed, well-nourished Head exam: PRESENT: atraumatic, normocephalic Respiratory exam: PRESENT: clear to auscultation sharif. ABSENT: rales, rhonchi, wheezes Cardiovascular exam: PRESENT: RRR. ABSENT: diastolic murmur, rubs, systolic murmur GI/Abdominal exam: PRESENT: normal bowel sounds, soft. ABSENT: distended, guarding, mass, organolmegaly, rebound, tenderness Neurological exam: PRESENT: alert, awake, other - Patient seems a little confused today although this may be just a normal dementia for her Psychiatric exam: PRESENT: appropriate affect, normal mood, other - Patient is pleasant but she says she is "itching all over" she also says that other people at the home where she came from had the same complaint. ABSENT: homicidal ideation, suicidal ideation Skin exam: PRESENT: other - No sign of rash, no lesions Results Laboratory Results: 10/27/18 06:23 10/27/18 06:23 10/27/18 10/27/18 10/27/18 06:23 06:23 06:23 WBC 4.5 RBC 2.80 L Hgb 9.4 L Hct 27.6 L MCV 99 H MCH 33.5 H MCHC 34.0 RDW 14.9 H Plt Count 125 L Seg Neutrophils % 67.0 Sodium 138.9 Potassium 4.1 Chloride 105 Carbon Dioxide 26 Anion Gap 8 BUN 28 H Creatinine 2.07 H Est GFR ( Amer) 28 L Glucose 81 Calcium 8.4 Magnesium 2.1 Triglycerides 90 Cholesterol 163.36 LDL Cholesterol Direct 60 VLDL Cholesterol 18.0 HDL Cholesterol 83 TSH 24.90 H 10/26/18 10/26/18 10/26/18 08:25 08:25 14:45 CK-MB (CK-2) 15.10 H 14.80 H Troponin I < 0.012 Cancelled < 0.012 NT-Pro-B Natriuret Pep 10/26/18 10/27/18 20:37 06:23 CK-MB (CK-2) 12.50 H Troponin I < 0.012 NT-Pro-B Natriuret Pep 322 Impressions: Abdomen/Pelvis CT 10/26/18 08:32 IMPRESSION: 1. No evidence of acute intra-abdominal/pelvic process. 2. Stable fat containing right paramedian upper abdominal hernia. Chest X-Ray 10/26/18 08:32 IMPRESSION: Emphysematous change with new patchy left lower lobe opacities suspicious for pneumonia. Head CT 10/26/18 08:32 IMPRESSION: 1. Soft tissue swelling/hematoma along the right frontal calvarium without evidence of acute intracranial abnormality. 2. Stable changes of parenchymal atrophy and nonspecific white matter changes, likely sequelae of microangiopathic disease. EVIDENCE OF ACUTE STROKE: NO. Assessment and Plan - Diagnosis (1) Fall Is this a current diagnosis for this admission?: Yes Plan: 10/26/2018-patient was brought to the emergency room with history of fall most likely secondary to hypoxia. PT consult was requested aspiration /fall precautions are requested. Patient is currently in the bed, will put an order for PT to evaluate (2) Pneumonia Qualifiers: Pneumonia type: due to unspecified organism Laterality: left Lung location: lower lobe of lung Qualified Code(s): J18.1 - Lobar pneumonia, unspecified organism Is this a current diagnosis for this admission?: Yes Plan: [id number] during the admission shows possible left-sided pneumonia plan to put the patient in the medical floor CODE STATUS is DNR/DNI septic work-up was requested lactic acid level was pending started on IV fluids normal saline at 75 cc/h and started on Zosyn 3.375 g IV every 8 hours blood cultures urine cultures are requested GI prophylaxis DVT prophylaxis was initiated patient was placed on oxygen supplementation 2 L via nasal cannula. Fall precautions asp iration precautions are requested physical therapy consult was requested. Since lives in assisted living most likely healthcare associated pneumonia possible gram-positive and gram-negative organisms responsible. 10/27/2018 x-ray yesterday shows suspicion for left lower lobe pneumonia as well as emphysematous changes patient was put on IV Zosyn day 2. O2 sats 97-98% on both room air or nasal cannula (3) Dementia Qualifiers: Dementia type: Alzheimer's disease Alzheimer's disease onset: late-onset Is this a current diagnosis for this admission?: No Plan: 10/26/2018-patient has advanced dementia not agitated not confused comfortably in the bed. Plan is to continue her assisted living medications. 10/27/2018 she is history of dementia would go along with her confusion today, it is subtle (4) Weakness Is this a current diagnosis for this admission?: Yes Plan: 10/27/2018 patient reportedly has fallen at the assisted living facility secondary to weakness and will have PT evaluate patient (5) KAREN (acute kidney injury) Is this a current diagnosis for this admission?: Yes Plan: 10/27/2018 patient's BUN today is 28 creatinine 2.07. Yesterday on admission her BUN was 36 and her creatinine was 2.34 so she is improving - Time Time Spent with patient: 25-34 minutes - Plan is to give the patient gentle hydration, IV antibiotics and follow labs dementia will not change nor probably will her ptopensities to falls
[2018-10-27] MEDS: ONDANSETRON HCL INJ/PF 4 MG/2 ML SDV IV PRN (19:55)
[2018-10-27] MEDS: TRAZODONE HCL 50 MG TABLET PO SCH (22:13)
[2018-10-27] MEDS: ATORVASTATIN CALCIUM 20 MG TABLET PO SCH (22:13)
[2018-10-28] MEDS: PIPERACILLIN SODIUM/TAZOBACTAM 3.375 GM in NORMAL SALINE 100 ML IV SCH ×4 (02:43→21:08)
[2018-10-28] MEDS: HEPARIN SOD (PORCINE) 5,000 UNIT/ML 1 ML VIAL SUBCUT SCH ×3 (06:31→21:08)
[2018-10-28] MEDS: PANTOPRAZOLE SODIUM 40 MG TABLET.DR PO SCH ×2 (06:31→17:52)
[2018-10-28] MEDS: FLUTICASONE/VILANTEROL 200-25 MCG/DOSE IH SCH (10:12)
[2018-10-28] MEDS: ESCITALOPRAM OXALATE 10 MG TABLET PO SCH (10:12)
[2018-10-28] MEDS: DICYCLOMINE HCL 20 MG TABLET PO SCH (10:12)
[2018-10-28] MEDS: MUPIROCIN 2% OINTMENT 22 GM TOP SCH ×2 (10:16→17:53)
[2018-10-28] MEDS: MINERAL OIL/PETROLATUM,WHITE CREAM 114 GM TOP SCH ×2 (10:16→17:53)
[2018-10-28] MEDS: NORMAL SALINE 1000 ML 1,000 ML IV PRN (10:18)
[2018-10-28] MEDS: LEVOTHYROXINE SODIUM 0.05 MG TABLET PO SCH (11:31)
[2018-10-28 13:12] LABS: FREE T3 < 0.50 pg/mL (2.77-5.27); FREE T4 (FREE THYROXINE) < 0.07 ng/dL (0.78-2.19)
[2018-10-28] MEDS ORDERED: DIPHENHYDRAMINE HCL 25 MG CAPSULE PO PRN (17:00)
[2018-10-28] MEDS: DIPHENHYDRAMINE HCL 25 MG/10 ML UDC PO PRN (17:52)
[2018-10-28] MEDS: ATORVASTATIN CALCIUM 20 MG TABLET PO SCH (21:08)
[2018-10-28] MEDS: TRAZODONE HCL 50 MG TABLET PO SCH (21:08)
[2018-10-29] MEDS: NORMAL SALINE 1000 ML 1,000 ML IV PRN ×2 (03:56→21:13)
[2018-10-29] MEDS: PIPERACILLIN SODIUM/TAZOBACTAM 3.375 GM in NORMAL SALINE 100 ML IV SCH ×4 (03:56→21:12)
[2018-10-29] MEDS: HEPARIN SOD (PORCINE) 5,000 UNIT/ML 1 ML VIAL SUBCUT SCH ×3 (05:02→21:06)
[2018-10-29] MEDS: PANTOPRAZOLE SODIUM 40 MG TABLET.DR PO SCH ×2 (05:02→17:44)
[2018-10-29] MEDS: LEVOTHYROXINE SODIUM 0.05 MG TABLET PO SCH (05:02)
[2018-10-29] MEDS: DICYCLOMINE HCL 20 MG TABLET PO SCH (10:20)
[2018-10-29] MEDS: ESCITALOPRAM OXALATE 10 MG TABLET PO SCH (10:20)
[2018-10-29] MEDS: MUPIROCIN 2% OINTMENT 22 GM TOP SCH ×2 (10:20→17:43)
[2018-10-29] MEDS: FLUTICASONE/VILANTEROL 200-25 MCG/DOSE IH SCH (10:21)
[2018-10-29] MEDS: MINERAL OIL/PETROLATUM,WHITE CREAM 114 GM TOP SCH ×2 (10:25→17:44)
--- NOTE | 2018-10-29 14:20 | PDOC PROGRESS REPORT ---
Subjective Progress Note for:: 10/29/18 Subjective:: 10/27/2018 patient was admitted to the hospital yesterday for a fall with syncope. Patient comes from assisted living. In the emergency room patient was found to have a possible pneumonia and therefore was admitted to the hospital for IV fluids and IV antibiotics. 10/29/2018 patient came from residential facility on 10/26/2018 secondary to a fall, secondary to hypoxia and pneumonia. Patient is improving should be able to go back on Wednesday and 48 hours from now Reason For Visit: LT SIDED PNEUMONIA Physical Exam Vital Signs: Temp Pulse Resp BP Pulse Ox 98.7 F 55 L 18 116/73 94 10/29/18 12:03 10/29/18 12:03 10/29/18 12:03 10/29/18 12:03 10/29/18 12:03 Intake & Output 10/28/18 10/29/18 10/30/18 06:59 06:59 06:59 Intake Total 2520 2460 100 Output Total 300 2 Balance 2220 2458 100 Weight 73.6 kg 74.9 kg General appearance: PRESENT: no acute distress, other - Complaining of itching Respiratory exam: PRESENT: clear to auscultation sharif. ABSENT: rales, rhonchi, wheezes Cardiovascular exam: PRESENT: RRR. ABSENT: diastolic murmur, rubs, systolic murmur Neurological exam: PRESENT: alert, awake, oriented to person, oriented to place, oriented to time, oriented to situation, CN II-XII grossly intact, other - Dementia, chronic. ABSENT: motor sensory deficit Psychiatric exam: PRESENT: anxious, other - Planing of itching, she is anxious, however would not prescribe medication for this Results Laboratory Results: 10/27/18 06:23 10/27/18 06:23 10/26/18 10/26/18 10/26/18 08:25 08:25 14:45 CK-MB (CK-2) 15.10 H 14.80 H Troponin I < 0.012 Cancelled < 0.012 NT-Pro-B Natriuret Pep 10/26/18 10/27/18 20:37 06:23 CK-MB (CK-2) 12.50 H Troponin I < 0.012 NT-Pro-B Natriuret Pep 322 Impressions: Abdomen/Pelvis CT 10/26/18 08:32 IMPRESSION: 1. No evidence of acute intra-abdominal/pelvic process. 2. Stable fat containing right paramedian upper abdominal hernia. Chest X-Ray 10/26/18 08:32 IMPRESSION: Emphysematous change with new patchy left lower lobe opacities suspicious for pneumonia. Head CT 10/26/18 08:32 IMPRESSION: 1. Soft tissue swelling/hematoma along the right frontal calvarium without evidence of acute intracranial abnormality. 2. Stable changes of parenchymal atrophy and nonspecific white matter changes, likely sequelae of microangiopathic disease. EVIDENCE OF ACUTE STROKE: NO. Assessment and Plan - Diagnosis (1) Fall Is this a current diagnosis for this admission?: Yes Plan: 10/26/2018-patient was brought to the emergency room with history of fall most likely secondary to hypoxia. PT consult was requested aspiration /fall precautions are requested. Patient is currently in the bed, will put an order for PT to evaluate 820 4:19 PT and nursing is getting the patient up out of bed. Patient will continue to be a fall precaution (2) Pneumonia Qualifiers: Pneumonia type: due to unspecified organism Laterality: left Lung location: lower lobe of lung Qualified Code(s): J18.1 - Lobar pneumonia, unspecified organism Is this a current diagnosis for this admission?: Yes Plan: 10/[id number] during the admission shows possible left-sided pneumonia plan to put the patient in the medical floor CODE STATUS is DNR/DNI septic work-up was requested lactic acid level was pending started on IV fluids normal saline at 75 cc/h and started on Zosyn 3.375 g IV every 8 hours blood cultures urine cultures are requested GI prophylaxis DVT prophylaxis was initiated patient was placed on oxygen supplementation 2 L via nasal cannula. Fall precautions aspiration precautions are requested physical therapy consult was requested. Since lives in assisted living most likely healthcare associated pneumonia poss ible gram-positive and gram-negative organisms responsible. 10/27/2018 x-ray yesterday shows suspicion for left lower lobe pneumonia as well as emphysematous changes patient was put on IV Zosyn day 2. O2 sats 97-98% on both room air or nasal cannula 10/29/2018 patient is on day 4 of Zosyn. O2 sat between 94 and 100 on 2 L of nasal cannula. Will repeat chest x-ray today compared to 10/26/2018, WBCs 4.5, patient afebrile 98.7 blood pressure 136/87 pulse 55 (3) Dementia Qualifiers: Dementia type: Alzheimer's disease Alzheimer's disease onset: late-onset Is this a current diagnosis for this admission?: No Plan: 10/26/2018-patient has advanced dementia not agitated not confused comfortably in the bed. Plan is to continue her assisted living medications. 10/27/2018 she is history of dementia would go along with her confusion today, it is subtle 10/29/2018 chronic dementia no changes (4) Weakness Is this a current diagnosis for this admission?: Yes Plan: 10/27/2018 patient reportedly has fallen at the assisted living facility secondary to weakness and will have PT evaluate patient 10/29/2018 patient has generalized weakness that is chronic. Patient is seen physical therapy while here in the hospital (5) KAREN (acute kidney injury) Is this a current diagnosis for this admission?: Yes Plan: 10/27/2018 patient's BUN today is 28 creatinine 2.07. Yesterday on admission her BUN was 36 and her creatinine was 2.34 so she is improving 10/29/2018 she is receiving normal saline at 75 mL's per hour, patient also on IV Zosyn - Time Time Spent with patient: 25-34 minutes
[2018-10-29 15:16] LABS: ABSOLUTE EOSINOPHILS # (AUTO) 0.1 10^3/uL (0.0-0.6); ABSOLUTE LYMPHOCYTES (AUTO) 1.1 10^3/uL (0.5-4.7); ABSOLUTE MONOCYTES (AUTO) 0.2 10^3/uL (0.1-1.4); ABSOLUTE NEUT (AUTO) 3.1 10^3/uL (1.7-8.2); BASOPHILS % (AUTO) 0.8 % (0-2); EOSINOPHILS % (AUTO) 2.5 % (0-6); HEMATOCRIT 29.3 % (36.0-47.0); HEMOGLOBIN 9.9 g/dL (12.0-15.5); LYMPHOCYTES % (AUTO) 23.4 % (13-45); MEAN CORPUSCULAR HEMOGLOBIN 33.4 pg (27.0-33.4); MEAN CORPUSCULAR HGB CONC 33.9 g/dL (32.0-36.0); MEAN CORPUSCULAR VOLUME 98 fl (80-97); MONOCYTES % (AUTO) 5.1 % (3-13); PLATELET COUNT 131 10^3/uL (150-450); RED BLOOD COUNT 2.97 10^6/uL (3.72-5.28); SEGMENTED NEUTROPHILS % (AUTO) 68.2 % (42-78); TOTAL CELLS COUNTED % (AUTO) 100 %; WHITE BLOOD COUNT 4.5 10^3/uL (4.0-10.5)
[2018-10-29 15:30] LABS: ANION GAP 7 (5-19); BLOOD UREA NITROGEN 16 mg/dL (7-20); CALCIUM 8.2 mg/dL (8.4-10.2); CARBON DIOXIDE 27 mmol/L (22-30); CHLORIDE 105 mmol/L (98-107); GLUCOSE 102 mg/dL (75-110)
[2018-10-29] MEDS: DIPHENHYDRAMINE HCL 25 MG/10 ML UDC PO PRN (19:33)
[2018-10-29] MEDS: TRAZODONE HCL 50 MG TABLET PO SCH (21:12)
[2018-10-29] MEDS: ATORVASTATIN CALCIUM 20 MG TABLET PO SCH (21:12)
[2018-10-30] MEDS: PIPERACILLIN SODIUM/TAZOBACTAM 3.375 GM in NORMAL SALINE 100 ML IV SCH ×4 (02:31→21:14)
[2018-10-30] MEDS: LEVOTHYROXINE SODIUM 0.05 MG TABLET PO SCH (06:06)
[2018-10-30] MEDS: HEPARIN SOD (PORCINE) 5,000 UNIT/ML 1 ML VIAL SUBCUT SCH ×3 (06:06→21:14)
[2018-10-30] MEDS: PANTOPRAZOLE SODIUM 40 MG TABLET.DR PO SCH ×2 (06:06→16:19)
[2018-10-30] MEDS: MUPIROCIN 2% OINTMENT 22 GM TOP SCH ×2 (10:13→17:12)
[2018-10-30] MEDS: DICYCLOMINE HCL 20 MG TABLET PO SCH (10:14)
[2018-10-30] MEDS: ESCITALOPRAM OXALATE 10 MG TABLET PO SCH (10:14)
[2018-10-30] MEDS: FLUTICASONE/VILANTEROL 200-25 MCG/DOSE IH SCH (10:14)
[2018-10-30] MEDS: MINERAL OIL/PETROLATUM,WHITE CREAM 114 GM TOP SCH ×2 (10:15→17:32)
--- NOTE | 2018-10-30 11:48 | RADIOLOGY REPORT (SQ) ---
EXAM DESCRIPTION: CHEST 2 VIEWS COMPLETED DATE/TIME: 10/30/2018 9:38 am REASON FOR STUDY: follow up pneumonia COMPARISON: 10/26/2018 NUMBER OF VIEWS: Two view TECHNIQUE: Frontal and lateral radiographic images of the chest acquired. LIMITATIONS: None. FINDINGS: LUNGS AND PLEURA: Improved aeration in the lung bases with residual subsegmental airspace disease left lower lobe. MEDIASTINUM AND HILAR STRUCTURES: Stable heart size and mediastinal structures. HEART AND VASCULAR STRUCTURES: Stable appearance. BONES: No acute findings. HARDWARE: None in the chest. OTHER: No other significant finding. IMPRESSION: Improving pneumonia. TECHNICAL DOCUMENTATION: JOB ID: [id number] [employer]- All Rights Reserved Reading location - IP/workstation name: [email or web address]
--- NOTE | 2018-10-30 13:53 | PDOC PROGRESS REPORT ---
Subjective Progress Note for:: 10/30/18 Subjective:: 10/27/2018 patient was admitted to the hospital yesterday for a fall with syncope. Patient comes from assisted living. In the emergency room patient was found to have a possible pneumonia and therefore was admitted to the hospital for IV fluids and IV antibiotics. 10/29/2018 patient came from custodial facility on 10/26/2018 secondary to a fall, secondary to hypoxia and pneumonia. Patient is improving should be able to go back on Wednesday and 48 hours from now. 10/30/2018 continues to improve pneumonia. His x-ray today shows improving pneumonia white count remains normal to DC to skilled nursing tomorrow Reason For Visit: LT SIDED PNEUMONIA Physical Exam Vital Signs: Temp Pulse Resp BP Pulse Ox 98.1 F 61 14 127/86 H 97 10/30/18 12:21 10/30/18 12:21 10/30/18 12:21 10/30/18 12:21 10/30/18 12:21 Intake & Output 10/29/18 10/30/18 10/31/18 06:59 06:59 06:59 Intake Total 2460 2560 100 Output Total 2 Balance 2458 2560 100 Weight 74.9 kg 72.3 kg General appearance: PRESENT: no acute distress, other - Sitting up on the side of the bed eating lunch Respiratory exam: PRESENT: clear to auscultation sharif. ABSENT: rales, rhonchi, wheezes Cardiovascular exam: PRESENT: RRR. ABSENT: diastolic murmur, rubs, systolic murmur Neurological exam: PRESENT: alert, awake, oriented to person, oriented to place, oriented to time, oriented to situation, CN II-XII grossly intact. ABSENT: motor sensory deficit Psychiatric exam: PRESENT: appropriate affect, normal mood. ABSENT: homicidal ideation, suicidal ideation Results Laboratory Results: 10/29/18 14:45 10/29/18 14:45 10/29/18 10/29/18 14:45 14:45 WBC 4.5 RBC 2.97 L Hgb 9.9 L Hct 29.3 L MCV 98 H MCH 33.4 MCHC 33.9 RDW 15.0 H Plt Count 131 L Seg Neutrophils % 68.2 Sodium 139.2 Potassium 4.0 Chloride 105 Carbon Dioxide 27 Anion Gap 7 BUN 16 Creatinine 2.14 H Est GFR ( Amer) 27 L Glucose 102 Calcium 8.2 L 10/26/18 10/26/18 10/26/18 08:25 08:25 14:45 CK-MB (CK-2) 15.10 H 14.80 H Troponin I < 0.012 Cancelled < 0.012 NT-Pro-B Natriuret Pep 10/26/18 10/27/18 20:37 06:23 CK-MB (CK-2) 12.50 H Troponin I < 0.012 NT-Pro-B Natriuret Pep 322 Impressions: Abdomen/Pelvis CT 10/26/18 08:32 IMPRESSION: 1. No evidence of acute intra-abdominal/pelvic process. 2. Stable fat containing right paramedian upper abdominal hernia. Head CT 10/26/18 08:32 IMPRESSION: 1. Soft tissue swelling/hematoma along the right frontal calvarium without evidence of acute intracranial abnormality. 2. Stable changes of parenchymal atrophy and nonspecific white matter changes, likely sequelae of microangiopathic disease. EVIDENCE OF ACUTE STROKE: NO. Chest X-Ray 10/30/18 07:00 IMPRESSION: Improving pneumonia. Assessment and Plan - Diagnosis (1) Fall Is this a current diagnosis for this admission?: Yes Plan: 10/26/2018-patient was brought to the emergency room with history of fall most likely secondary to hypoxia. PT consult was requested aspiration /fall precautions are requested. Patient is currently in the bed, will put an order for PT to evaluate 820 4:19 PT and nursing is getting the patient up out of bed. Patient will continue to be a fall precaution. 10 30 18 patient is up and ambulatory ,does not appear to be weak. Would benefit from use of walker and/or assistance however (2) Pneumonia Qualifiers: Pneumonia type: due to unspecified organism Laterality: left Lung location: lower lobe of lung Qualified Code(s): J18.1 - Lobar pneumonia, unspecified organism Is this a current diagnosis for this admission?: Yes Plan: 10/26/[id number] during the admission shows possible left-sided pneumonia plan to put the patient in the medical floor CODE STATUS is DNR/DNI septic work-up was requested lactic acid level was pending started on IV fluids normal saline at 75 cc/h and started on Zosyn 3.375 g IV every 8 hours blood cultures urine cultures are requested GI prophylaxis DVT prophylaxis was initiated patient was placed on oxygen supplementation 2 L via nasal cannula. Fall precautions aspiration precautions are requested physical therapy consult was requested. Since lives in assisted living most likely healthcare associated pneumonia possible gram-positive and gram-negative organisms responsible. 10/27/2018 x-ray yesterday shows suspicion for left lower lobe pneumonia as well as emphysematous changes patient was put on IV Zosyn day 2. O2 sats 97-98% on both room air or nasal cannula 10/29/2018 patient is on day 4 of Zosyn. O2 sat between 94 and 100 on 2 L of nasal cannula. Will repeat chest x-ray today compared to 10/26/2018, WBCs 4.5, patient afebrile 98.7 blood pressure 136/87 pulse 55 10/30/2018 vital signs remained stable. Day 5 of Zosyn. Chest x-ray shows improvement of the pneumonia will record patient's oxygen saturation on room air. And to DC back to assisted living tomorrow. We will switch to Zithromax tomorrow for 5 days. (3) Dementia Qualifiers: Dementia type: Alzheimer's disease Alzheimer's disease onset: late-onset Is this a current diagnosis for this admission?: No Plan: 10/26/2018-patient has advanced dementia not agitated not confused comfortably in the bed. Plan is to continue her assisted living medications. 10/27/2018 she is history of dementia would go along with her confusion today, it is subtle 10/29/2018 chronic dementia no changes 10/30/2018 no obvious signs of dementia. (4) Weakness Is this a current diagnosis for this admission?: Yes Plan: 10/27/2018 patient reportedly has fallen at the assisted living facility secondary to weakness and will have PT evaluate patient 10/29/2018 patient has generalized weakness that is chronic. Patient is seen physical therapy while here in the hospital 10/30/2018 patient continues to get stronger every day, with being up and ambulatory, sitting up in bed. Patient would still be a fall risk however if she had to ambulate any significant distance (5) KAREN (acute kidney injury) Is this a current diagnosis for this admission?: Yes Plan: 10/27/2018 patient's BUN today is 28 creatinine 2.07. Yesterday on admission her BUN was 36 and her creatinine was 2.34 so she is improving 10/29/2018 she is receiving normal saline at 75 mL's per hour, patient also on IV Zosyn. 10/30/2018 normal saline continues to run at 75/h BUN 16 creatinine 2.14, GFR 92. Patient taking p.o.'s well - Time Time Spent with patient: 25-34 minutes
[2018-10-30] MEDS: NORMAL SALINE 1000 ML 1,000 ML IV PRN (15:58)
[2018-10-30] MEDS: ONDANSETRON HCL INJ/PF 4 MG/2 ML SDV IV PRN (18:19)
[2018-10-30] MEDS: ATORVASTATIN CALCIUM 20 MG TABLET PO SCH (21:14)
[2018-10-30] MEDS: TRAZODONE HCL 50 MG TABLET PO SCH (21:14)
[2018-10-31] MEDS: HEPARIN SOD (PORCINE) 5,000 UNIT/ML 1 ML VIAL SUBCUT SCH ×2 (05:41→13:01)
[2018-10-31] MEDS: LEVOTHYROXINE SODIUM 0.05 MG TABLET PO SCH (05:45)
[2018-10-31] MEDS: PANTOPRAZOLE SODIUM 40 MG TABLET.DR PO SCH (05:45)
[2018-10-31] MEDS: PIPERACILLIN SODIUM/TAZOBACTAM 3.375 GM in NORMAL SALINE 100 ML IV SCH ×2 (05:45→09:05)
[2018-10-31] MEDS: DICYCLOMINE HCL 20 MG TABLET PO SCH (09:06)
[2018-10-31] MEDS: FLUTICASONE/VILANTEROL 200-25 MCG/DOSE IH SCH (09:07)
[2018-10-31] MEDS: ESCITALOPRAM OXALATE 10 MG TABLET PO SCH (09:07)
[2018-10-31] MEDS: MINERAL OIL/PETROLATUM,WHITE CREAM 114 GM TOP SCH (09:07)
[2018-10-31] MEDS: MUPIROCIN 2% OINTMENT 22 GM TOP SCH (09:07)
[2018-10-31] MEDS: NORMAL SALINE 1000 ML 1,000 ML IV PRN (09:10)
[2018-10-31 12:23] VITALS: BP 136/87
--- NOTE | 2018-10-31 12:53 | PDOC TRANSFER SUMMARY ---
General - Admit/Disc Date/PCP Admission Date/Primary Care Provider: 10/26/18 10:48 Admitted on 10/26/2018 Discharge Date: 10/31/18 - Discharge Diagnosis (1) Fall Is this a current diagnosis for this admission?: Yes Summary: Patient was admitted initially for a fall, since being here patient has had no falls ,patient has been working with physical therapy on a daily basis (2) Pneumonia Is this a current diagnosis for this admission?: Yes Summary: Patient was admitted to the hospital for sided pneumonia patient was started on IV Zosyn is IV fluids. X-ray shows that the pneumonia has almost completely resolved patient will be discharged on Zithromax 5 days (3) Dementia Is this a current diagnosis for this admission?: Yes Summary: Patient has a history of dementia which is unchanged. During my interaction with the patient she has been awake and alert as well is oriented (4) Weakness Is this a current diagnosis for this admission?: Yes Summary: On admission patient was much weaker than she is at discharge and I attribute her improving to daily physical therapy as well as IV fluids. also the fact that her pneumonia has resolved. patient still has a generalized weakness but not unusual for her age condition (5) KAREN (acute kidney injury) Is this a current diagnosis for this admission?: Yes Summary: Patient's renal function has improved since being here at the time of discharge her BUN is 16 creatinine 2.14. When admitted her BUN was 36 and her creatinine was 2.34 (6) Hypothyroidism Is this a current diagnosis for this admission?: Yes Summary: Patient was on no Synthroid on admission checking her TSH found to be elevated at 24.9 free T4 was low at 0.07, free T3 was low at 0.50. Patient was placed on Synthroid 0.05 mg - Additional Information Resuscitation Status: Full Code Discharge Diet: As Tolerated Discharge Activity: Balance Activity w/Rest Prescriptions: Levothyroxine Sodium [Synthroid 0.05 mg Tablet] 0.05 mg PO Q6AM #30 tablet Azithromycin [Zithromax 250 mg Tablet] 250 mg PO DAILY #5 tablet Home Medications: Atorvastatin Calcium [Lipitor 20 mg Tablet] 20 mg PO QHS 10/26/18 Budesonide/Formoterol Fumarate [Symbicort HFA 160-4.5 mcg Inhaler 6 gm] 2 puff IH Q12 10/26/18 Dextromethorphan HBr/Quinidine [Nuedexta 20-10 mg Capsule] 1 cap PO BID 10/26/18 Dicyclomine HCl [Bentyl 20 mg Tablet] 20 mg PO DAILY 10/26/18 Escitalopram Oxalate [Lexapro] 20 mg PO DAILY 10/26/18 Juniper/Donis/Znox/Pet,Wh/Rodriguez [Endit Ointment] 1 applic TOP QID 10/26/18 Mineral Oil/Petrolatum,White [Eucerin Cream 114 gm] 1 applic TOP BID 10/26/18 Mupirocin [Bactroban 2% Ointment 22 gm] 1 applic TOP BID 10/26/18 Olopatadine HCl [Pazeo] 1 drop OU DAILY 10/26/18 Trazodone HCl [Desyrel 50 mg Tablet] 50 mg PO QHS 10/26/18 Azithromycin [Zithromax 250 mg Tablet] 250 mg PO DAILY #5 tablet 10/31/18 Levothyroxine Sodium [Synthroid 0.05 mg Tablet] 0.05 mg PO Q6AM #30 tablet 10/31 History of Present Illness Admission Date/PCP: 10/26/18 10:48 History of Present Illness: SONI DUONG is a 78 year old female Patient was admitted to the hospital through the emergency room for history of a fall and syncope. Chest x-ray in the emergency room showed a left-sided pneumo maggi patient was hypoxia. Patient was placed on IV antibiotics. Patient has improved with gentle hydration and IV antibiotics patient is being discharged back to shelter facility on further antibiotics by mouth as well as Synthroid. She is to resume her pre-admission medications Physical Exam Vital Signs: Temp Pulse Resp BP Pulse Ox 97.8 F 58 L 21 H 136/87 H 99 10/31/18 12:22 10/31/18 12:22 10/31/18 12:22 10/31/18 12:22 10/31/18 12:22 Intake & Output 10/30/18 10/31/18 11/01/18 06:59 06:59 06:59 Intake Total 2560 2020 1200 Output Total 200 Balance 2560 1820 1200 Weight 72.3 kg 100.3 kg General appearance: PRESENT: no acute distress Respiratory exam: PRESENT: clear to auscultation sharif. ABSENT: rales, rhonchi, wheezes Cardiovascular exam: PRESENT: RRR. ABSENT: diastolic murmur, rubs, systolic mu rmur Neurological exam: PRESENT: alert, awake, oriented to person, oriented to place, oriented to time, oriented to situation, CN II-XII grossly intact. ABSENT: motor sensory deficit Psychiatric exam: PRESENT: appropriate affect, normal mood. ABSENT: homicidal ideation, suicidal ideation Results Laboratory Results: 10/29/18 14:45 10/29/18 14:45 10/26/18 10:47 Blood Blood Culture - Final NO GROWTH IN 5 DAYS 10/26/18 10:18 Blood Blood Culture - Final NO GROWTH IN 5 DAYS 10/26/18 10/26/18 10/26/18 08:25 08:25 14:45 CK-MB (CK-2) 15.10 H 14.80 H Troponin I < 0.012 Cancelled < 0.012 NT-Pro-B Natriuret Pep 10/26/18 10/27/18 20:37 06:23 CK-MB (CK-2) 12.50 H Troponin I < 0.012 NT-Pro-B Natriuret Pep 322 Impressions: Abdomen/Pelvis CT 10/26/18 08:32 IMPRESSION: 1. No evidence of acute intra-abdominal/pelvic process. 2. Stable fat containing right paramedian upper abdominal hernia. Head CT 10/26/18 08:32 IMPRESSION: 1. Soft tissue swelling/hematoma along the right frontal calvarium without evidence of acute intracranial abnormality. 2. Stable changes of parenchymal atrophy and nonspecific white matter changes, likely sequelae of microangiopathic disease. EVIDENCE OF ACUTE STROKE: NO. Chest X-Ray 10/30/18 07:00 IMPRESSION: Improving pneumonia. Transfer Plan - Time Spent with Patient Time spent with patient: Greater than 30 Minutes Qualifiers - * PATIENT BEING DISCHARGED WITH ANY OF THE FOLLOWING DIAGNOSIS: No Acute Heart Failure - Is this a Heart Failure Patient?: No Plan Time Spent: Greater than 30 Minutes - Continue p.o. antibiotics for the next 5 days. Start new dose of Synthroid. Continue physical therapy. Use oxygen as needed
== END 2018-10-31 14:33 | DRG 194 ==
LOC: ER 08:17 → EH 10:48 → 3S 14:50 → 5 10-28 23:23
PROVIDERS: ADMIT Internal Medicine; ATTEND Internal Medicine
DX: J18.9 Pneumonia, unspecified organism (principal); J44.0 Chronic obstructive pulmonary disease with (acute) lower respiratory infection; N18.4 Chronic kidney disease, stage 4 (severe); N17.9 Acute kidney failure, unspecified; E86.0 Dehydration; J44.9 Chronic obstructive pulmonary disease, unspecified; I12.9 Hypertensive chronic kidney disease with stage 1 through stage 4 chronic kidney disease, or unspecified chronic kidney disease; Z66 Do not resuscitate; G30.1 Alzheimer's disease with late onset; R09.02 Hypoxemia; Z91.81 History of falling; F02.80 Dementia in other diseases classified elsewhere, unspecified severity, without behavioral disturbance, psychotic disturbance, mood disturbance, and anxiety; D63.1 Anemia in chronic kidney disease; E03.9 Hypothyroidism, unspecified; Z79.890 Hormone replacement therapy; Z79.899 Other long term (current) drug therapy; I25.10 Atherosclerotic heart disease of native coronary artery without angina pectoris; M19.90 Unspecified osteoarthritis, unspecified site; M10.9 Gout, unspecified; Z83.3 Family history of diabetes mellitus; Z82.49 Family history of ischemic heart disease and other diseases of the circulatory system
CPT/HCPCS: 36415; 70450; 71045; 71046; 74176; 80048; 80053; 80061; 81001; 82553; 82803; 83036; 83605; 83735; 83880; 84439; 84443; 84481; 84484; 85025; 87040; 87086; 93005; 93010; 96365; 99285; J1644; J2405; J2543; J3490; J7030; J7050; J7620